=== PATIENT | male | born 1985 | race Caucasian/White ===

== ENCOUNTER 2019-11-18 20:21 | Emergency (ER) | payer OTHER, SELFPAY ==
[2019-11-18 20:22] VITALS: BP 142/94; PULSE 92; RESP 15; TEMP 37.1; O2SAT 98; BMI 27.9
[2019-11-18 20:30] VITALS: RESP 16
--- NOTE | 2019-11-18 20:39 | ED.VISSUMM ---
- ER Visit Summary Date of Service: 11/18/19 Chief Complaint: Left hand injury History of Present Illness: The patient is a 33 M CM past medical history prior ankle surgery. Patient is down in this area camping. The dog was on a leash. It pulled his hand into the tailgate of the truck. This occurred about an hour ago. He has pain and swelling and abrasion of his left hand. He is left-hand dominant. States his last tetanus shot was 6 years ago. No other injuries. Physical Examination: Young male no acute distress vital signs are stable afebrile. H EENT exam unremarkable atraumatic. Lungs clear to auscultation bilaterally. Heart regular rhythm no murmur. Chest were nontender. Abdomen soft nontender. Extremities moves all 4. Neurovascular intact. Dorsum of his left hand there is a superficial abrasion. Does not need to be repaired. There is swelling to the dorsum of his left hand primarily over the metacarpals of the left index and ring finger. No gross bony deformity. His wrist and forearm are completely nontender. He has full range of motion of his left shoulder, elbow and wrist. Full flexion-extension of his left hand. No gross bony deformity. Tenderness to the area that swollen. Neurologic exam normal. Test Results: Left hand x-ray 3 views read by myself shows soft tissue swelling. No obvious fracture. No dislocation. Emergency Department Course and Treatment: Patient was offered but deferred Tylenol and Motrin. He had I washed and dried his hand. There is nothing to be sewn. Repeat exam patient is doing well at 21:06 PM. He knows to ice and elevate. Follow-up if is not improving. He and I went over his x-ray results. Treatment Plan: Ice and elevate. Motrin for pain and swelling. Tylenol for pain. Follow-up if not improving in 1 to 2 weeks. Disposition: Discharge Impression: Left hand abrasion and contusion This note was generated with [employer] dictation software. It may contain incorrect words, spelling, and punctuation that were not noted in review of the chart prior to signing ED Disposition - Plan for ED Patient: Disposition: Home or Assisted Living Instructions: ED EXTREMITY CONTUSION Upper Referrals: [facility] Doctor,Out of [NON-STAFF] - 1 Week if not improving Additional Instructions: Ice and elevate your hand to decrease pain and swelling. Motrin for pain and swelling and Tylenol for pain. This should progressively improve. If not getting better have it reexamined and possibly re-x-rayed to ensure that there is no fracture. Keep the wound clean and apply antibiotic ointment daily. Watch for any signs of infection such as redness, warmth, red streaks or fever.
--- NOTE | 2019-11-18 20:42 | ED.DEP ---
ED Disposition - Plan for ED Patient: Disposition: Home or Assisted Living Instructions: ED EXTREMITY CONTUSION Upper Referrals: [facility] Doctor,Out of [Primary Care Provider] - 1 Week if not improving Additional Instructions: Ice and elevate your hand to decrease pain and swelling. Motrin for pain and swelling and Tylenol for pain. This should progressively improve. If not getting better have it reexamined and possibly re-x-rayed to ensure that there is no fracture. Keep the wound clean and apply antibiotic ointment daily. Watch for any signs of infection such as redness, warmth, red streaks or fever.
--- NOTE | 2019-11-18 20:49 | RAD_ITS ---
STUDY: X-RAY - LEFT HAND REASON FOR EXAM: Male, 33 years old. SMASHED LEFT HAND IN [facility]. SWELLING TECHNIQUE: 3 view(s) of the hand. COMPARISON: None. FINDINGS: Normal radiocarpal articulation. Normal distal radioulnar joint. Normal visualized carpal bones. Normal carpal articulations Normal carpometacarpal articulation of the thumb. Normal second through fifth carpometacarpal joints. Normal metacarpi. Normal metacarpophalangeal joint of the thumb. Normal interphalangeal joint of the thumb. Normal proximal and distal phalanges of the thumb. Normal metacarpophalangeal joints of the second through fifth fingers. Normal proximal and distal interphalangeal joints of the second through fifth fingers. Normal phalanges of the second through fifth fingers. The soft tissue structures are unremarkable. RAD/Hand Min 3 Views IMPRESSION: No acute osseous injury is evident. Electronically Signed: Blaise Barker MD at 21:06 EDT Tel , Service support ,
[2019-11-18] MEDS: Ibuprofen 600 MG Tablet PO (21:20)
== END 2019-11-18 21:20 | disposition home or self-care (01) ==
LOC: ED 20:53
PROVIDERS: Emergency Provider Emergency Medicine
DX: S60.512A Abrasion of left hand, initial encounter (principal); S60.222A Contusion of left hand, initial encounter; X50.1XXA Overexertion from prolonged static or awkward postures, initial encounter; Y93.9 Activity, unspecified; Y92.9 Unspecified place or not applicable
CPT/HCPCS: 73130; 99282